=== PATIENT | female | born 1965 | race Caucasian/White ===

== ENCOUNTER → 2017-02-03 | Outpatient (CLI) | payer BC ==
[~2017-02-03] MED LIST: AMOX500C3 PO; PANT40TA PO
[2017-02-03 15:50] LABS: BASO % 0.3 %; BASO ABS # 0.02 K/uL (0-0.2); COMPLETE YES; EOS % 1.6 %; HEMATOCRIT 35.8 % (37-47); IG% 0.2 %; LYMPH % 32.9 %; LYMPH ABS # 1.88 K/uL (1.2-3.4); MEAN CELL VOLUME 89.9 fL (80-100); MEAN CORPUSCULAR HEMOGLOBIN 31.2 pg (25-34); MEAN CORPUSCULAR HGB CONC 34.6 g/dl (32-36); MEAN PLATELET VOLUME 9.9 fL (7.4-10.4); MONO % 9.4 %; NEUT % 55.6 %; PLATELET COUNT 288 K/uL (130-400); RED BLOOD COUNT 3.98 M/uL (4.2-5.4); WHITE BLOOD COUNT 5.72 K/uL (4.8-10.8)
[2017-02-03 16:40] LABS: ALT/SGPT 21 U/L (12-78); BLOOD UREA NITROGEN 10 mg/dl (7-18); BUN/CREATININE RATIO 15.5 (10-20); CALCIUM 9.3 mg/dl (8.5-10.1); CARBON DIOXIDE 25 mmol/L (21-32); CHLORIDE 106 mmol/L (98-107); CHOLESTEROL 155 mg/dl (0-200); CREATININE 0.67 mg/dl (0.60-1.20); GLUCOSE 76 mg/dl (70-99); POTASSIUM 3.9 mmol/L (3.5-5.1); SODIUM 139 mmol/L (136-145)
[2017-02-03 16:43] LABS: ALB/GLOB RATIO 1.2 (0.9-2); ALKALINE PHOSPHATASE 49 U/L (45-117); AST/SGOT 16 U/L (15-37); CHOLESTEROL/HDL RATIO 2.9; HDL CHOLESTEROL 54 mg/dl; LDL CHOLESTEROL CALCULATED 86 mg/dl; TRIGLYCERIDES 75 mg/dl (0-150); VERY LOW DENSITY LIPOPROT CALC 15 mg/dl
== END | disposition home or self-care (01) ==
LOC: C.LAB1850 14:16
PROVIDERS: ATTEND Nurse Practitioner Adult Health
DX: Z00.00 Encounter for general adult medical examination without abnormal findings (principal); E55.9 Vitamin D deficiency, unspecified; M85.80 Other specified disorders of bone density and structure, unspecified site

== ENCOUNTER → 2017-11-05 | Outpatient (CLI) | payer BC ==
--- NOTE | 2017-11-09 13:37 | MAMMOGRAPHY REPORT ---
BILATERAL DIGITAL SCREENING MAMMOGRAM TOMOSYNTHESIS WITH CAD: 11/05/2017 CLINICAL HISTORY: Routine screening. Patient has no complaints. TECHNIQUE: Breast tomosynthesis in addition to standard 2D mammography was performed. Current study was also evaluated with a Computer Aided Detection (CAD) system. COMPARISON: Comparison is made to exams dated: 01/24/2016 mammogram, 10/09/2013 mammogram, 10/04/2012 mammogram, 08/28/2011 mammogram, 10/16/2006 mammogram, and 04/12/2002 mammogram - [facility]. BREAST COMPOSITION: The tissue of both breasts is heterogeneously dense, which may obscure small mas ses. FINDINGS: No suspicious masses, calcifications, or areas of architectural distortion are noted in ei ther breast. There has been no significant interval change compared to prior exams. Scattered bilater al benign-appearing calcifications are not significantly changed. IMPRESSION: ACR BI-RADS CATEGORY 2: BENIGN There is no mammographic evidence of malignancy. A 1 year screening mammogram is recommended. The pa tient will receive written notification of the results. Approximately 10% of breast cancers are not detected with mammography. A negative mammographic report should not delay biopsy if a clinically suggestive mass is present. Ann-Marie Salcido M.D. /:11/05/2017 15:17:01 S[employer] Drier Feeder: Tonja Rosenberg, [facility] letter sent: Normal 1/2 BI-RADS Code: ACR BI-RADS Category 2: Benign
== END | disposition home or self-care (01) ==
LOC: C.MAMM 13:50
PROVIDERS: ATTEND Obstetrics & Gynecology
DX: Z12.31 Encounter for screening mammogram for malignant neoplasm of breast (principal)

== ENCOUNTER 2021-02-10 10:53 | Inpatient (IN) ==
[2021-02-10] MEDS ORDERED: cefTRIAXone SODIUM 2,000 MG/70 ML BAG IV STA (11:24)
[2021-02-10] MEDS ORDERED: SODIUM CHLORIDE 0.9% 1000ML 1,000 ML IV STA (11:24)
[2021-02-10] MEDS ORDERED: KETOROLAC TROMETHAMINE 15 MG/ML VIAL IV ONE (11:27)
--- NOTE | 2021-02-10 11:48 | Emergency Department Note ---
Impression & Plan Abscess or cellulitis of scalp, Facial swelling ED Provider Note Provider: Joey Lee MD DATE OF SERVICE: 02/10/2021 CHIEF COMPLAINT: Scalp and facial pain HISTORY OF PRESENT ILLNESS: Patient is a 55-year-old female with a past medical history including gastroparesis, GERD, and TMJ presenting here today complaining of approximately 5 days of worsening forehead and facial swelling. Was seen here 2 days ago on Wednesday and had a drainage of a forehead abscess and there were concerns for cellulitis. She is been taking Keflex and Bactrim since that time. Reports worsening of the swelling and pain to the forehead is now is significant swelling around the eyes this morning. Patient states use some cool compresses to help with the swelling but her eyes were almost swollen shut this morning. States he feeling still a bit dizzy over the last several days as well. States has been using ibuprofen for pain when this wears off the pain is fairly severe in the front of her forehead and face. She states that she is noted a few enlarged lymph nodes in her neck as well. Denies any other rash or trauma. Denies other numbness or weakness. Patient states that her left eye vision seems just a little bit off. Denies acute double vision. Denies a history of diabetes or resistant infections. States she did not take ibuprofen or her antibiotics this morning. She called her doctor's office regarding this and was referred here. Patient does have a distal history of shingles but states not having any similar rash to this. Patient states she is not had significant drainage from the small abscess drained 2 days ago. REVIEW OF SYSTEMS: A total of 10 review of systems was obtained and negative except as stated above in the HPI. PAST MEDICAL HISTORY: As noted above MEDICATIONS: Reviewed home medications including currently Keflex and Bactrim SOCIAL HISTORY: Lives at home with , non-smoker PHYSICAL EXAM: GENERAL: alert and oriented in no acute distress on stretcher Head: Patient with some forehead erythema and significant swelling and puffiness under the bilateral eyes. No vesicular rashes noted. In the scalp there is an approximately 8 mm area of some prominence which she describes as the prior incision and drainage site on the forehead. EYES: No injection, discharge or icterus. PERRL, EOMI. as above noted puffiness and swelling with some mild erythema below the bilateral eyes. NECK: Trachea midline. Supple with a few shotty lymph nodes appreciated in the anterior chains ENT: Mucous membranes pink and moist. Pharynx without erythema or exudate. LUNGS: Airway patent. No retractions. Breath sounds clear with good air entry bilaterally. HEART: Regular rate and rhythm. No chest wall tenderness SKIN: Acyanotic, warm, dry, without rashes EXTREMITIES: Without swelling, tenderness or deformity NEUROLOGICAL: No focal deficits. No aphasia. No facial droop or slurred speech. Ambulatory. EK bpm sinus bradycardia. No PVC or PAC. No acute ST segment elevation or depression appreciated with a QTC of 411. CONTINUOUS CARDIAC MONITORING: was ordered and showed a heart rate of 50s-70s bpm in normal sinus rhythm to sinus bradycardia Patient's laboratory studies and imaging reviewed. Differential includes Infection, dehydration, metabolic abnormality, hypo/hyperglycemia, electrolyte disturbance, anemia, hypoxia, cardiac sources, intracerebral event, toxicologic, neurologic, as well as other pathologies. IMPRESSION/MEDICAL DECISION MAKING: Patient presents complaining a little bit dizziness worsening facial pain and swelling currently on antibiotics. States she been taking the Keflex and Bactrim but now worsening swelling and no significant puffiness under the eyes. No extraocular movement limitations noted. No crepitus noted. Patient does not appear meningitic. Blood work returns without significant leukocytosis. No e vidence of severe electrolyte abnormality or signs of troponin elevation and EKG was completed given her dizziness complaint. Covid test was sent as well as blood cultures and lactate. Expanded coverage with vancomycin and ceftriaxone here given the worsening of her swelling and pain and erythema. Did receive a dose of Toradol here to help with pain. There is no vesicular component and crosses the midline and doubt this represents an acute zoster outbreak. No other associated rash or swelling elsewhere and lower suspicion that this is acutely allergic reaction. Lactate not elevated. CT of the maxillofacial without evidence of significant abscess. CT head questions a small possible mccallum bcutaneous abscess with adjacent infiltration. I do question how much of the swelling is inflammatory versus infectious. She does not appear septic. Discussed with the patient performing an additional incision and drainage on the resultant wound and area today but patient initially declined. Patient states she was in quite a lot of pain with the incision and drainage attempt here the other day and declined even with local lidocaine infiltration attempt at this time. Given appears to be some failure in the outpatient setting with oral antibiotics feel that further observation of her here is reasonable on IV antibiotics. DIAGNOSIS: Forehead abscess and cellulitis DISPOSITION: Hospitalist will evaluate Patient was agreeable with this plan. Past Med/Surg History Medical History Anemia Barretts esophagus Gastroparesis GERD (gastroesophageal reflux disease) Liver hemangioma Menorrhagia (03/16/14) Seasonal allergies Temporomandibular joint disorder Tinnitus, bilateral Vegetarian Surgical History History of bilateral tubal ligation History of colonoscopy History of esophagogastroduodenoscopy (EGD) History of hysterectomy History of nasal septoplasty History of tonsillectomy History of tooth extraction Family History Father Family history of diabetes mellitus Denies family history of Ovarian cancer Prostate cancer Myocardial infarction Breast cancer Colorectal cancer Social History Smoking Status: Never smoker Second Hand Exposure: Yes (OCCASIONALLY); Hx Alcohol Use: Yes Alcohol type: wine Hx Substance Use: No Preferred Language: American Communication Ability: Effective Visual Impairment: No Limitations Hearing Ability: Normal Supervisor Car Installations Required: No Beliefs That Will Affect Care: None marital status: Current Living Situation: Spouse current occupational status: employed Feels Safe at Home: Yes Childhood Exposure to Second-Hand Smoke: Yes Dental Care, Regularly: Yes Physical Activity Frequency: 3-4 Times per Week Seatbelt Use: always Sunscreen Use: Yes Assistive Devices: Glasses Allergies Allergies Allergy/AdvReac Type Severity Reaction Status Date / Time No Known Allergies Allergy Verified 02/10/21 12:41 Home Meds Home Medications Medication Instructions Recorded Confirmed Calcium 600 + D(3) 1 cap PO BID 04/11/19 02/10/21 loratadine [Claritin] 10 mg PO QAM PRN 04/11/19 02/10/21 pantoprazole 40 mg PO QAM 02/08/21 02/10/21 Previous Rx's Medication Instructions Recorded fluticasone propionate 50 1 spray INTRANASAL DAILY PRN #9.9 12/26/19 mcg/actuation nasal ml spray,suspension cephalexin 500 mg PO QID 7 Days #28 tab 02/08/21 sulfamethoxazole-trimethoprim 1 tab PO BID 7 Days #14 tab 02/08/21 [Bactrim DS] trazodone 50 mg tablet 25 - 50 mg PO HS #30 tab 02/10/21 Results & Data (ED) Vital Signs Vital Signs - 24 hr 02/10/21 10:56 02/10/21 11:46 02/10/21 13:08 Temperature 37.2 C Temperature Source Temporal Artery Scan Pulse Rate 70 59 L Pulse Rate [Left] 58 L Respiratory Rate 16 20 18 Respiratory Effort / Characteristics Non-Labored Non-Labored Spontaneous Respiratory Depth Normal Normal Respiratory Pattern Regular Blood Pressure 141/76 H Blood Pressure [Right Arm] 128/72 Blood Pressure Mean 97 Blood Pressure Mean [Right Arm] 90 Blood Pressure Position Sitting Blood Pressure Position [Right Arm] Lying Pulse Oximetry 99 98 98 Oxygen Delivery Method Room Air Room Air Room Air Sepsis Recent Fever Within 48 Hours No Sepsis New/Unexplained Change in Mental Status No Sepsis Action Taken by Nursing No Action Required Laboratory Data Result diagrams: 02/10/21 11:59 02/10/21 11:59 Lab Results 02/10/21 02/10/21 02/10/21 Range/Units 11:59 11:59 11:59 WBC 7.83 (4.8-10.8) K/uL RBC 4.19 L (4.2-5.4) M/uL Hgb 12.8 (12.0-16.0) g/dL Hct 38.0 (37-47) % MCV 90.7 (80-100) fL MCH 30.5 (25-34) pg MCHC 33.7 (32-36) g/dL RDW Std Deviation 41.9 (36.4-46.3) fL RDW Coeff of Telma 12.7 (11.5-14.5) % Plt Count 281 (130-400) K/uL MPV 9.9 (7.4-10.4) fL Immature Gran % (Auto) 0.3 % Neut % (Auto) 68.8 % Lymph % (Auto) 20.2 % [place] % (Auto) 10.0 % Eos % (Auto) 0.6 % Baso % (Auto) 0.1 % Neut # (Auto) 5.39 (1.4-6.5) K/uL Lymph # (Auto) 1.58 (1.2-3.4) K/uL [place] # (Auto) 0.78 H (0.11-0.59) K/uL Eos # (Auto) 0.05 (0-0.5) K/uL Baso # (Auto) 0.01 (0-0.2) K/uL Immature Gran # (Auto) 0.02 (0.00-0.02) K/uL PT 9.8 (9.0-12.0) Seconds INR 1.0 (0.9-1.1) Sodium 138 (136-145) mmol/L Potassium 4.5 (3.5-5.1) mmol/L Chloride 108 H (98-107) mmol/L Carbon Dioxide 26 (21-32) mmol/L Anion Gap 4.0 (3-11) BUN 14 (7-18) mg/dl Creatinine 0.85 (0.6-1.2) mg/dl Est Cr Clr Drug Dosing 67.9 ml/min Est GFR ( Amer) 88.2 Est GFR (Non-Af Amer) 76.1 BUN/Creatinine Ratio 16.9 (10-20) Glucose 90 (70-99) mg/dl Lactate (0.4-2.0) mmol/L Calcium 9.2 (8.5-10.1) mg/dl Total Bilirubin 0.5 (0.2-1) mg/dl AST 14 L (15-37) U/L ALT 26 (12-78) U/L Alkaline Phosphatase 81 (45-117) U/L Troponin I < 0.015 (0-0.045) ng/ml Total Protein 7.4 (6.4-8.2) gm/dl Albumin 3.8 (3.4-5.0) gm/dl Globulin 3.6 (2.5-4.0) gm/dl Albumin/Globulin Ratio 1.1 (0.9-2) Urine Color Urine Appearance (Clear) Urine pH (4.5-7.5) Ur Specific Clio (1.000-1.030) Urine Protein (Negative) Urine Glucose (UA) (Negative) Urine Ketones (Negative) Urine Blood (Negative) Urine Nitrite (Negative) Urine Bilirubin (Negative) Urine Urobilinogen (Negative) Ur Leukocyte Esterase (Negative) COVID-19 Eval Order SARS-CoV-2 (PCR) (Negative) Influenza Type A (PCR) (Neg) Influenza Type B (PCR) (Neg) RSV (RT-PCR) (Neg) 02/10/21 02/10/21 02/10/21 Range/Units 12:07 12:07 12:36 WBC (4.8-10.8) K/uL RBC (4.2-5.4) M/uL Hgb (12.0-16.0) g/dL Hct (37-47) % MCV (80-100) fL MCH (25-34) pg MCHC (32-36) g/dL RDW Std Deviation (36.4-46.3) fL RDW Coeff of Telma (11.5-14.5) % Plt Count (130-400) K/uL MPV (7.4-10.4) fL Immature Gran % (Auto) % Neut % (Auto) % Lymph % (Auto) % [place] % (Auto) % Eos % (Auto) % Baso % (Auto) % Neut # (Auto) (1.4-6.5) K/uL Lymph # (Auto) (1.2-3.4) K/uL [place] # (Auto) (0.11-0.59) K/uL Eos # (Auto) (0-0.5) K/uL Baso # (Auto) (0-0.2) K/uL Immature Gran # (Auto) (0.00-0.02) K/uL PT (9.0-12.0) Seconds INR (0.9-1.1) Sodium (136-145) mmol/L Potassium (3.5-5.1) mmol/L Chloride (98-107) mmol/L Carbon Dioxide (21-32) mmol/L Anion Gap (3-11) BUN (7-18) mg/dl Creatinine (0.6-1.2) mg/dl Est Cr Clr Drug Dosing ml/min Est GFR ( Amer) Est GFR (Non-Af Amer) BUN/Creatinine Ratio (10-20) Glucose (70-99) mg/dl Lactate 0.9 (0.4-2.0) mmol/L Calcium (8.5-10.1) mg/dl Total Bilirubin (0.2-1) mg/dl AST (15-37) U/L ALT (12-78) U/L Alkaline Phosphatase (45-117) U/L Troponin I (0-0.045) ng/ml Total Protein (6.4-8.2) gm/dl Albumin (3.4-5.0) gm/dl Globulin (2.5-4.0) gm/dl Albumin/Globulin Ratio (0.9-2) Urine Color Urine Appearance (Clear) Urine pH (4.5-7.5) Ur Specific Clio (1.000-1.030) Urine Protein (Negative) Urine Glucose (UA) (Negative) Urine Ketones (Negative) Urine Blood (Negative) Urine Nitrite (Negative) Urine Bilirubin (Negative) Urine Urobilinogen (Negative) Ur Leukocyte Esterase (Negative) COVID-19 Eval Order [facility] at [facility] SARS-CoV-2 (PCR) NEGATIVE (Negative) Influenza Type A (PCR) Negative (Neg) Influenza Type B (PCR) Negative (Neg) RSV (RT-PCR) Negative (Neg) 02/10/21 Range/Units 13:15 WBC (4.8-10.8) K/uL RBC (4.2-5.4) M/uL Hgb (12.0-16.0) g/dL Hct (37-47) % MCV (80-100) fL MCH (25-34) pg MCHC (32-36) g/dL RDW Std Deviation (36.4-46.3) fL RDW Coeff of Telma (11.5-14.5) % Plt Count (130-400) K/uL MPV (7.4-10.4) fL Immature Gran % (Auto) % Neut % (Auto) % Lymph % (Auto) % [place] % (Auto) % Eos % (Auto) % Baso % (Auto) % Neut # (Auto) (1.4-6.5) K/uL Lymph # (Auto) (1.2-3.4) K/uL [place] # (Auto) (0.11-0.59) K/uL Eos # (Auto) (0-0.5) K/uL Baso # (Auto) (0-0.2) K/uL Immature Gran # (Auto) (0.00-0.02) K/uL PT (9.0-12.0) Seconds INR (0.9-1.1) Sodium (136-145) mmol/L Potassium (3.5-5.1) mmol/L Chloride (98-107) mmol/L Carbon Dioxide (21-32) mmol/L Anion Gap (3-11) BUN (7-18) mg/dl Creatinine (0.6-1.2) mg/dl Est Cr Clr Drug Dosing ml/min Est GFR ( Amer) Est GFR (Non-Af Amer) BUN/Creatinine Ratio (10-20) Glucose (70-99) mg/dl Lactate (0.4-2.0) mmol/L Calcium (8.5-10.1) mg/dl Total Bilirubin (0.2-1) mg/dl AST (15-37) U/L ALT (12-78) U/L Alkaline Phosphatase (45-117) U/L Troponin I (0-0.045) ng/ml Total Protein (6.4-8.2) gm/dl Albumin (3.4-5.0) gm/dl Globulin (2.5-4.0) gm/dl Albumin/Globulin Ratio (0.9-2) Urine Color Yellow Urine Appearance Clear (Clear) Urine pH 5.5 (4.5-7.5) Ur Specific [place] 1.034 H (1.000-1.030) Urine Protein Negative (Negative) Urine Glucose (UA) Negative (Negative) Urine Ketones Negative (Negative) Urine Blood Negative (Negative) Urine Nitrite Negative (Negative) Urine Bilirubin Negative (Negative) Urine Urobilinogen Negative (Negative) Ur Leukocyte Esterase Negative (Negative) COVID-19 Eval Order SARS-CoV-2 (PCR) (Negative) Influenza Type A (PCR) (Neg) Influenza Type B (PCR) (Neg) RSV (RT-PCR) (Neg) Administered Medications Sodium Chloride (Nss 1000ml) 1,000 mls @ 125 mls/hr IV .Q8H STA Stop: 02/10/21 19:23 Last Admin: 02/10/21 12:07 Dose: 125 mls/hr Documented by: [id number] Vancomycin HCl 1,250 mg/ (Sodium Chloride) 525 mls @ 200 mls/hr IV NOW ONE Stop: 02/10/21 15:03 Last Admin: 02/10/21 13:08 Dose: 200 mls/hr Documented by: [id number] Discontinued Medications Ceftriaxone Sodium (Rocephin) 2,000 mg in 70 mls @ 140 mls/hr IV NOW STA Stop: 02/10/21 11:53 Last Infusion: 02/10/21 13:49 Dose: 0 mls/hr Documented by: [id number] Admin: 02/10/21 13:08 Dose: 140 mls/hr Documented by: [id number] Ioversol (Ioversol 100ml) 95 ml IV ONCE ONE Stop: 02/10/21 12:56 Last Admin: 02/10/21 12:56 Dose: 95 ml Documented by: [id number] Ketorolac Tromethamine (Ketorolac Tromethamine 15 Mg/Ml Vial) 10 mg IV NOW ONE Stop: 02/10/21 11:28 Last Admin: 02/10/21 12:06 Dose: 10 mg Documented by: [id number] Imaging Data Radiologist's Impression: Face CT 02/10/21 11:24 CT facial bones w con CT DOSE: 839.14 mGy.cm CLINICAL HISTORY: Facial swelling. Possible abscess. TECHNIQUE: The patient was scanned in a dynamic helical fashion during intravenous administration of 95 cc of Optiray 320 A dose lowering technique was utilized adhering to the principles of ALARA. COMPARISON STUDY: None. FINDINGS: No facial fractures are visualized. No submandibular or parotid gland masses are visualized. Intraparotid lymph nodes are visualized within the parotid glands bilaterally. There are no fluid collections suspicious for abscess. There is no hydrocephalus. No orbital lesions are visualized. There is nasal septal deviation to the left. IMPRESSION: 1. Unremarkable facial CT scan. No evidence of abscess. ACT 112: Negative or not required by law. Electronically signed by: Wesly Patton M.D. 02/10/2021 1:[address] 02/10/21 11:25 CT OF THE HEAD WITHOUT CONTRAST CLINICAL HISTORY: forehead swelling, ?abscess/cellulitis COMPARISON STUDY: No previous studies for comparison. TECHNIQUE: Helical axial images of the head were obtained without IV contrast. Automated exposure control was utilized for the study. A dose lowering technique was utilized adhering to the principles of ALARA. FINDINGS: No acute intracranial hemorrhage, midline shift or mass effect is present. The ventricular system is unremarkable. The basal cisterns are patent. No extra-axial collections are present. There are no findings to suggest acute dural sinus thrombosis or acute territorial infarct. No significant calvarial abnormalities are present. Visualized portions of the sinuses and mastoid air cells are clear. Note is made of a midline forehead subcutaneous abnormality that measures approximately 1 cm. There is mild adjacent infiltration. This favo rs an infectious process with small abscess. Underlying calvarium is intact. IMPRESSION: 1. No acute intracranial findings. 2. Midline forehead subcutaneous abnormality that measures approximately 1 cm with mild adjacent infiltration. This favors an infectious process with small abscess. Clinical follow up to ensure resolution is recommended. Calvarium intact. ACT 112: Negative or not required by law. Electronically signed by: Tevin Watts M.D. 02/10/2021 1:08 PM Discharge Plan Visit Data Chief Complaint: Facial Injury/Pain Stated Complaint: SWELLING ON FACE, DR REF OVER ED Provider: Joey Lee Discharge Problem: Abscess or cellulitis of scalp, Facial swelling Patient Disposition: Being Evaluated by Hospitalist Forms Stand Alone Forms: [facility] Prescriptions Prescriptions: No Action fluticasone propionate [Flonase Allergy Relief] 50 mcg/actuation spray,suspens ion 1 spray INTRANASAL DAILY PRN (Reason: Nasal Congestion) Qty: 9.9 RF: 3 trazodone 50 mg tablet 25 - 50 mg PO HS Qty: 30 RF: 1 loratadine [Claritin] 10 mg Tablet 10 mg PO QAM PRN (Reason: Allergy Symptoms) RF: 0 Calcium 600 + D(3) 600 mg calcium- 200 unit Capsule 1 cap PO BID RF: 0 pantoprazole 40 mg tablet,delayed release (DR/EC) 40 mg PO QAM RF: 0 sulfamethoxazole-trimethoprim [Bactrim DS] 800-160 mg tablet 1 tab PO BID 7 Days Qty: 14 RF: 0 cephalexin 500 mg tablet 500 mg PO QID 7 Days Qty: 28 RF: 0 Referrals Referrals: Good Villareal MD [Primary Care Provider] -
[2021-02-10 12:17] LABS: Basophils # (auto) 0.01 K/uL (0-0.2); Basophils % (auto) 0.1 %; Eosinophils # (auto) 0.05 K/uL (0-0.5); Eosinophils % (auto) 0.6 %; Hemoglobin 12.8 g/dL (12.0-16.0); Immature Granulocytes # (auto) 0.02 K/uL (0.00-0.02); Immature Granulocytes % (auto) 0.3 %; Lymphocytes # (auto) 1.58 K/uL (1.2-3.4); Lymphocytes % (auto) 20.2 %; Mean Corpuscular Hemoglobin 30.5 pg (25-34); Mean Corpuscular Hgb Conc 33.7 g/dL (32-36); Mean Corpuscular Volume 90.7 fL (80-100); Mean Platelet Volume 9.9 fL (7.4-10.4); Monocytes # (auto) 0.78 K/uL (0.11-0.59); Neutrophils # (auto) 5.39 K/uL (1.4-6.5); Neutrophils % (auto) 68.8 %; Platelet Count 281 K/uL (130-400); RDW Coefficient of Variation 12.7 % (11.5-14.5); RDW Standard Deviation 41.9 fL (36.4-46.3); Red Blood Count 4.19 M/uL (4.2-5.4); White Blood Count 7.83 K/uL (4.8-10.8)
[2021-02-10] MEDS ORDERED: VANCOMYCIN CONSULT ACTIVE PRN ×2 (12:26→16:14)
[2021-02-10] MEDS ORDERED: VANCOMYCIN HCL 1,250 MG in SODIUM CHLORIDE 0.9% 500 ML IV ONE (12:26)
[2021-02-10 12:29] LABS: Prothrombin Time 9.8 Seconds (9.0-12.0)
[2021-02-10 12:35] LABS: Alanine Aminotransferase 26 U/L (12-78); Albumin Level 3.8 gm/dl (3.4-5.0); Aspartate Aminotransferase 14 U/L (15-37); BUN Creatinine Ratio 16.9 (10-20); Blood Urea Nitrogen 14 mg/dl (7-18); Calcium 9.2 mg/dl (8.5-10.1); Carbon Dioxide 26 mmol/L (21-32); Chloride 108 mmol/L (98-107); Creatinine Clr Calc Pharmacy 67.9 ml/min; Est GFR (African American) 88.2; Est GFR (Non-African American) 76.1; Glucose 90 mg/dl (70-99); Potassium 4.5 mmol/L (3.5-5.1); Sodium 138 mmol/L (136-145)
[2021-02-10 12:40] LABS: Albumin Globulin Ratio 1.1 (0.9-2); Alkaline Phosphatase 81 U/L (45-117); Bilirubin,Total 0.5 mg/dl (0.2-1); Globulin 3.6 gm/dl (2.5-4.0); Total Protein 7.4 gm/dl (6.4-8.2); Troponin I < 0.015 ng/ml (0-0.045)
[2021-02-10] MEDS ORDERED: OPTIRAY 320 100ml IV ONE (12:55)
--- NOTE | 2021-02-10 13:09 | CT Scan Report ---
CT OF THE HEAD WITHOUT CONTRAST CLINICAL HISTORY: forehead swelling, ?abscess/cellulitis COMPARISON STUDY: No previous studies for comparison. TECHNIQUE: Helical axial images of the head were obtained without IV contrast. Automated exposure con trol was utilized for the study. A dose lowering technique was utilized adhering to the principles o f ALARA. FINDINGS: No acute intracranial hemorrhage, midline shift or mass effect is present. The ventricular system is unremarkable. The basal cisterns are patent. No extra-axial collections are present. There are no findings to suggest acute dural sinus thrombosis or acute territorial infarct. No significant calvarial abnormalities are present. Visualized portions of the sinuses and mastoid air cells are mini ar. Note is made of a midline forehead subcutaneous abnormality that measures approximately 1 cm. The re is mild adjacent infiltration. This favors an infectious process with small abscess. Underlying ca lvarium is intact. IMPRESSION: 1. No acute intracranial findings. 2. Midline forehead subcutaneous abnormality that measures approximately 1 cm with mild adjacent infi ltration. This favors an infectious process with small abscess. Clinical follow up to ensure resoluti on is recommended. Calvarium intact. ACT 112: Negative or not required by law. Electronically signed by: Tevin Watts M.D. 02/10/2021 1:08 PM
--- NOTE | 2021-02-10 13:12 | CT Scan Report ---
CT facial bones w con CT DOSE: 839.14 mGy.cm CLINICAL HISTORY: Facial swelling. Possible abscess. TECHNIQUE: The patient was scanned in a dynamic helical fashion during intravenous administration of 95 cc of Optiray 320 A dose lowering technique was utilized adhering to the principles of ALARA. COMPARISON STUDY: None. FINDINGS: No facial fractures are visualized. No submandibular or parotid gland masses are visualized. Intraparotid lymph nodes are visualized with in the parotid glands bilaterally. There are no fluid collections suspicious for abscess. There is no hydrocephalus. No orbital lesions are visualized. There is nasal septal deviation to the left. IMPRESSION: 1. Unremarkable facial CT scan. No evidence of abscess. ACT 112: Negative or not required by law. Electronically signed by: Wesly Patton M.D. 02/10/2021 1:10 PM
[2021-02-10 13:18] LABS: Influenza A virus by PCR Negative (Neg); Influenza B virus by PCR Negative (Neg); RSV by PCR Negative (Neg); SARS CoV2 RNA(COVID-19) InHosp NEGATIVE (Negative)
[2021-02-10 13:47] LABS: Appearance Urine Clear (Clear); Bilirubin Urine Negative (Negative); Blood Urine Negative (Negative); Color Urine Yellow; Glucose Urine UA Negative (Negative); Ketones Urine Negative (Negative); Leukocyte Esterase Urine Negative (Negative); Nitrite Urine Negative (Negative); Protein Urine Negative (Negative); Specific Gravity Urine 1.034 (1.000-1.030); Urobilinogen Urine Negative (Negative); pH Urine 5.5 (4.5-7.5)
--- NOTE | 2021-02-10 14:24 | Surgery Consultation ---
Date of Consultation February 10, 2021 Assessment & Plan (1) Cellulitis of head or scalp: Culture obtained from draining scalp lesion. There is no fluid collection present today for incision and drainage. Our recommendation is to use warm compress to affected area to promote drainage and continue antibiotics. Patient will be re-evaluated tomorrow. Supervising Physician Co-Signing Physician Notes I personally saw and examined this patient and agree with the assessment and plan. There is cellulitis of the forehead and periorbital area, small area of inflammation/abscess anterior scalp which is draining pus. Culture obtained. Discussed further attempt at I+D vs warm compresses and 24 hours of IV antibiotics first. I do not think there would be much benefit to I+D at the present time as it is draining on its own. She would prefer antibiotics for now. History of Present Illness History of Present Illness Susan is being seen today with Dr. Butt in consultation of a facial abscess and swelling. She reports noticing a small, tender lump in her hair last week. This continued to increase in size and pain, so she went to the ED on Wednesday. At that time, an attempt to I&D the lump was made, with minimal drainage noted. The patient was discharged home on PO Bactrim and Keflex. She reports that yesterday she noticed increased redness and facial swelling and returns today to the ED for evaluation. She does admit to pain of the forehead. She denies vision changes, fevers. CT performed as noted below: IMPRESSION: 1. No acute intracranial findings. 2. Midline forehead subcutaneous abnormality that measures approximately 1 cm with mild adjacent infiltration. This favors an infectious process with small abscess. Clinical follow up to ensure resolution is recommended. Calvarium intact. Allergies Allergy/AdvReac Type Severity Reaction Status Date / Time No Known Allergies Allergy Verified 02/10/21 12:41 Home Medications Medication Instructions Recorded Confirmed Type Calcium 600 + D(3) 1 cap PO BID 04/11/19 02/10/21 History loratadine [Claritin] 10 mg PO QAM PRN 04/11/19 02/10/21 History fluticasone propionate 50 1 spray INTRANASAL DAILY PRN #9.9 12/26/19 02/10/21 Rx mcg/actuation nasal ml spray,suspension cephalexin 500 mg PO QID 7 Days #28 tab 02/08/21 02/10/21 Rx pantoprazole 40 mg PO QAM 02/08/21 02/10/21 History sulfamethoxazole-trimethoprim 1 tab PO BID 7 Days #14 tab 02/08/21 02/10/21 Rx [Bactrim DS] trazodone 50 mg tablet 25 - 50 mg PO HS #30 tab 02/10/21 02/10/21 Rx Patient History Medical History Anemia Barretts esophagus Gastroparesis GERD (gastroesophageal reflux disease) Liver hemangioma Menorrhagia (03/16/14) Seasonal allergies Temporomandibular joint disorder Tinnitus, bilateral Vegetarian Surgical History History of bilateral tubal ligation History of colonoscopy History of esophagogastroduodenoscopy (EGD) History of hysterectomy History of nasal septoplasty History of tonsillectomy History of tooth extraction Family History Father Family history of diabetes mellitus Denies family history of Ovarian cancer Prostate cancer Myocardial infarction Breast cancer Colorectal cancer Social History Smoking Status: Never smoker Second Hand Exposure: Yes (OCCASIONALLY); Hx Alcohol Use: Yes Alcohol type: wine Hx Substance Use: No Preferred Language: Albanian Communication Ability: Effective Visual Impairment: No Limitations Hearing Ability: Normal Administrative Assistant Data Entry Required: No Beliefs That Will Affect Care: None marital status: Current Living Situation: Spouse current occupational status: employed Feels Safe at Home: Yes Childhood Exposure to Second-Hand Smoke: Yes Dental Care, Regularly: Yes Physical Activity Frequency: 3-4 Times per Week Seatbelt Use: always Sunscreen Use: Yes Assistive Devices: Glasses Review of Systems Review of Systems: All systems reviewed & are unremarkable except as noted in HPI & below Physical Exam Physical Exam: 55 year old female with draining subcutaneous lesion frontal scalp, erythema, warmth and edema of the forehead and bilateral lower eyelid/malar area. no drainable abscess in noted on clinical exam Results & Data ([facility]) Vital Signs (Past 12 Hours) Vital Signs Temp Pulse Pulse Resp BP BP Pulse Ox 02/10/21 13:08 58 L 18 128/72 98 02/10/21 11:46 59 L 20 98 02/10/21 10:56 37.2 C 70 16 141/76 H 99 PG Care Time/CCT Total # of Minutes Spent Total Time Spent with Patient: Total time spent is greater than 50% in coordination of care (as documented) at patient's floor/unit and/or counseling patient: Coding Level of Care Code 22928 Inpt Consult Level 2 Diagnoses Cellulitis of head or scalp L03.811
--- NOTE | 2021-02-10 14:28 | History & Physical Report ---
Date of Service February 10, 2021 Assessment & Plan (1) Abscess of scalp: Plastic surgery consult for evaluation of I&D - IV ABX- Vancomycin and Rocephin - wean down and de-escalate as able - Warm compresses to the scalp - Likely follow after 24-48 hours- appreciate plastic surgery's recommendations (2) Cellulitis of head or scalp: As above, continue to monitor - consistent with streptococci infection- await cultures - Not septic appearing - Cool compresses for symptoms - CRP pending, WBC normal, NLR 2.5:1 (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- patient states that symptoms are controlled (4) Vitamin D deficiency disease: No acute needs, continue home medication History of Present Illness Chief Complaint: Scalp pain Primary Care Provider: Good Villareal MD 55 YOF with past medical history of Vitamin D deficiency, audi esophagitis, IBS; who originally presented to the ED on for complaint of a painful scalp lesion with erythema that extended to the forehead. She had an attempted needle aspiration performed and was discharged on oral Keflex and Bactrim. She came in today for worsening of the erythema to her forehead and as well as down below her eyes. She also noted that her lymph nodes along her neck were sore. In the Emergency room she had blood cultures performed, urine culture, a head and face CT scan, and was started on Ceftriaxone and Vancomycin. The Hospitalist service was then asked to see the patient for admission. The patient does not recall any nidus of injury to her scalp. She "may have bumped her head on the recliner while getting the remote from under couch", but thought that was a couple of months ago. She did go to the hair dressers on and does not recall any injury or soreness following that appointment. She also noted that her grandchild threw up in her hair a couple of days ago, while she was holding her over her head. She has a ~1.5 x.5 cm abscess on her scalp about 1.5 inches back from her hairline, it is scabbed over with green yellow purulent drainage, the surrounding tissue was mildly tender, not erythematous, with erythema down her central forehead that stopped right above her eyebrows. Erythema to below her bilateral eyes and upper eyelids, does not track any further laterally and posterior. Patient had one day of her antibiotics at home and Tylenol for pain. Denies fevers, headache, vision or breathing changes. Allergies Allergy/AdvReac Type Severity Reaction Status Date / Time No Known Allergies Allergy Verified 02/10/21 12:41 Home Medications Medication Instructions Recorded Confirmed Type Calcium 600 + D(3) 1 cap PO BID 04/11/19 02/10/21 History loratadine [Claritin] 10 mg PO QAM PRN 04/11/19 02/10/21 History fluticasone propionate 50 1 spray INTRANASAL DAILY PRN #9.9 12/26/19 02/10/21 Rx mcg/actuation nasal ml spray,suspension cephalexin 500 mg PO QID 7 Days #28 tab 02/08/21 02/10/21 Rx pantoprazole 40 mg PO QAM 02/08/21 02/10/21 History sulfamethoxazole-trimethoprim 1 tab PO BID 7 Days #14 tab 02/08/21 02/10/21 Rx [Bactrim DS] trazodone 50 mg tablet 25 - 50 mg PO HS #30 tab 02/10/21 02/10/21 Rx Past Med/Surg History Medical History Anemia HX OF Barretts esophagus Gastroparesis GERD (gastroesophageal reflux disease) "SILENT" Liver hemangioma BEING MONITORED (JEAN) Menorrhagia (03/16/14) Seasonal allergies Temporomandibular joint disorder Tinnitus, bilateral Vegetarian Surgical History History of bilateral tubal ligation History of colonoscopy History of esophagogastroduodenoscopy (EGD) History of hysterectomy History of nasal septoplasty History of tonsillectomy History of tooth extraction Family History Father Family history of diabetes mellitus Denies family history of Ovarian cancer Prostate cancer Myocardial infarction Breast cancer Colorectal cancer Social History Smoking Status: Never smoker Second Hand Exposure: Yes (OCCASIONALLY); Hx Alcohol Use: Yes Alcohol type: wine Hx Substance Use: No Preferred Language: [place] Islander Communication Ability: Effective Visual Impairment: No Limitations Hearing Ability: Normal Stamp Presser Required: No Beliefs That Will Affect Care: None marital status: Current Living Situation: Spouse current occupational status: employed Other Information That Helps Us Care for You: No Feels Safe at Home: Yes Safety Concerns: Feels Safe At This Time Childhood Exposure to Second-Hand Smoke: Yes Dental Care, Regularly: Yes Physical Activity Frequency: 3-4 Times per Week Seatbelt Use: always Sunscreen Use: Yes Assistive Devices: Glasses Review of Systems Review of Systems: REVIEW OF SYSTEMS: Constitutional: No fever, sweats or chills Eyes: No diplopia, no worsening or blurred vision ENT: normal hearing, no trouble swallowing Respiratory: No cough, sputum, dyspnea at rest or on exertion Cardiovascular: No chest pain, tightness or palpitations Abdomen: No pain, nausea, vomiting, diarrhea or constipation Musculoskeletal: No joint pain, calf pain, swelling Neurologic: No weakness, numbness/tingling, or balance problems Psychiatric: No anxiety or depression Skin: No rash or itch Physical Exam Physical Exam: PHYSICAL EXAM: General: awake, alert, no apparent distress Head: Normocephalic, abscess as per HPI, purulent drainage ENT: PERRLA, EOMI, erythema and as per HPI, no pharyngeal exudate, mucous membranes moist, anterior cervical lymph nodes tender, submandibular and auricular lymph nodes tender and mildly swollen Neuro: AAO x 3, speech clear and appropriate, strength intact bilaterally 5/5, sensation intact and equal all extremities and dermatome, no pronator drift Chest: equal rise and fall of the chest, no accessory muscle use, no heaves or thrills, Clear to auscultation, on room air, Cardiac: Regular rate and rhythm, telemetry reviewed, skin warm dry, cap refill <3 seconds, peripheral pulses +2 no JVD, no murmur, no JVD, no edema GI: NABS x 4 quadrants, soft, nontender to palpation, no rebound, guarding or tenderness : Spontaneously voiding, no pain, no CVA tenderness, Extremities: Normal inspection, no peripheral edema or erythema, calfs nontender to palpation Psych: Normal mood and affect Skin: no rash or erythema Results & Data Results & Data ([facility]) Vital Signs (Past 12 Hours) Vital Signs Temp Pulse Pulse Resp BP BP Pulse Ox 02/10/21 13:08 58 L 18 128/72 98 02/10/21 11:46 59 L 20 98 02/10/21 10:56 37.2 C 70 16 141/76 H 99 Laboratory Results Abnormal lab results 02/10/21 02/10/21 02/10/21 Range/Units 11:59 11:59 13:15 RBC 4.19 L (4.2-5.4) M/uL [place] # (Auto) 0.78 H (0.11-0.59) K/uL Chloride 108 H (98-107) mmol/L AST 14 L (15-37) U/L Ur Specific [place] 1.034 H (1.000-1.030) Diagnostic Findings CT OF THE HEAD WITHOUT CONTRAST CLINICAL HISTORY: forehead swelling, ?abscess/cellulitis COMPARISON STUDY: No previous studies for comparison. TECHNIQUE: Helical axial images of the head were obtained without IV contrast. Automated exposure control was utilized for the study. A dose lowering technique was utilized adhering to the principles of ALARA. FINDINGS: No acute intracranial hemorrhage, midline shift or mass effect is present. The ventricular system is unremarkable. The basal cisterns are patent. No extra-axial collections are present. There are no findings to suggest acute dural sinus thrombosis or acute territorial infarct. No significant calvarial abnormalities are present. Visualized portions of the sinuses and mastoid air cells are clear. Note is made of a midline forehead subcutaneous abnormality that measures approximately 1 cm. There is mild adjacent infiltration. This favors an infectious process with small abscess. Underlying calvarium is intact. IMPRESSION: 1. No acute intracranial findings. 2. Midline forehead subcutaneous abnormality that measures approximately 1 cm with mild adjacent infiltration. This favors an infectious process with small abscess. Clinical follow up to ensure resolution is recommended. Calvarium intact. CT facial bones w con CT DOSE: 839.14 mGy.cm CLINICAL HISTORY: Facial swelling. Possible abscess. TECHNIQUE: The patient was scanned in a dynamic helical fashion during intravenous administration of 95 cc of Optiray 320 A dose lowering technique was utilized adhering to the principles of ALARA. COMPARISON STUDY: None. FINDINGS: No facial fractures are visualized. No submandibular or parotid gland masses are visualized. Intraparotid lymph nodes are visualized within the parotid glands bilaterally. There are no fluid collections suspicious for abscess. There is no hydrocephalus. No orbital lesions are visualized. There is nasal septal deviation to the left. IMPRESSION: 1. Unremarkable facial CT scan. No evidence of abscess. Medications Administered Sodium Chloride (Nss 1000ml) 1,000 mls @ 125 mls/hr IV .Q8H STA Stop: 02/10/21 19:23 Last Admin: 02/10/21 12:07 Dose: 125 mls/hr Documented by: [id number] Vancomycin HCl 1,250 mg/ (Sodium Chloride) 525 mls @ 200 mls/hr IV NOW ONE Stop: 02/10/21 15:03 Last Admin: 02/10/21 13:08 Dose: 200 mls/hr Documented by: [id number] Discontinued Medications Ceftriaxone Sodium (Rocephin) 2,000 mg in 70 mls @ 140 mls/hr IV NOW STA Stop: 02/10/21 11:53 Last Infusion: 02/10/21 13:49 Dose: 0 mls/hr Documented by: [id number] Admin: 02/10/21 13:08 Dose: 140 mls/hr Documented by: [id number] Ioversol (Ioversol 100ml) 95 ml IV ONCE ONE Stop: 02/10/21 12:56 Last Admin: 02/10/21 12:56 Dose: 95 ml Documented by: [id number] Ketorolac Tromethamine (Ketorolac Tromethamine 15 Mg/Ml Vial) 10 mg IV NOW ONE Stop: 02/10/21 11:28 Last Admin: 02/10/21 12:06 Dose: 10 mg Documented by: [id number] ECG Additional Comments: Vent. Rate : 059 BPM Atrial Rate : 059 BPM P-R Int : 164 ms QRS Dur : 078 ms QT Int : 416 ms P-R-T Axes : 027 -25 021 degrees QTc Int : 411 ms Sinus bradycardia Otherwise normal ECG When compared with ECG of 28-FEB-2014 12:38, No significant change was found Code Status & VTE Plan Code Status VTE: SCD's ambulation CODE: FULL Supervising Physician Co-Signing Physician Notes Attending Admit Note & Attestation - Pt seen & examined, chart reviewed, care plan d/w VALERIA Avila. I agree w/ the riley components of his documentation. Pleasant 55yo female presenting with several days of worsening scalp abscess and erythema of her face. Visited our ER on 02/08. Bedside I/D attempted at that time with essentially no purulence obtained. D/c home on keflex/doxy combination. Despite such the abscess worsened. She used warm compresses and it started to drain spontaneously in the last 24 hours. In addition she has developed b/l facial erythema and swelling along with central/midline forehead erythema. No fevers. PMH,PSH, allergies, meds, sochx, famhx - reviewed VSS, afebrile gen - NAD, nontoxic skin - 1.5 x 1.5cm abscess in scalp nearly at the junction of the forehead and scalp line; it is directly in midline; it is swollen, tender, and spontaneously draining purulent material. midline of forehead there is erythema. b/l cheeks extending to both eyes - erythema with swelling. Has the appearance of erysipilis. heart - RRR, s1 s2 lungs - CTA b/l abd - soft ext - no edema labs, imaging reviewed A/P: Scalp abscess Forehead cellulitis Facial/cheek cellulitis - erysipelas suspected Wound culture obtained by plastics Patient would like trial of IV antibiotics, warm compresses, and supportive care rather than attempts at I/D of abscess again - especially since the abscess is now spontaneously draining Cont IV rocephin/vanco If this is erysipelas with abscess classically it is caused by group A strep [place] MRSA swab ultimately returned negative today Jonah Boswell MD PG Care Time/CCT Total # of Minutes Spent Total Time Spent with Patient: Total time spent is greater than 50% in coordination of care (as documented) at patient's floor/unit and/or counseling patient: Coding Level of Care Code 31452 Initial Inpt Care Lvl 2 Diagnoses Abscess of scalp L02.811 Cellulitis of head or scalp L03.811 Kinsey esophagus K22.70 Kinsey's esophagus type: without dysplasia Vitamin D deficiency disease E55.9 (1) Kinsey esophagus Kinsey's esophagus type: without dysplasia Qualified Code(s): K22.70 - Kinsey's esophagus without dysplasia
--- NOTE | 2021-02-10 14:42 | Electrocardiogram Report ---
Test Reason : Blood Pressure : / mmHG Vent. Rate : 059 BPM Atrial Rate : 059 BPM P-R Int : 164 ms QRS Dur : 078 ms QT Int : 416 ms P-R-T Axes : 027 -25 021 degrees QTc Int : 411 ms Sinus bradycardia Otherwise normal ECG When compared with ECG of 28-FEB-2014 12:38, No significant change was found Confirmed by Felipe Irving ([id number]) on 02/10/2021 2:41:59 PM Referred By: Confirmed By:Felipe Irving
[2021-02-10] MEDS ORDERED: ONDANSETRON INJ 2 MG/ML 2 ML VIAL IV PRN (16:14)
[2021-02-10] MEDS ORDERED: FLUTICASONE PROPIONATE NA SPR 16 GM BTL PRN (16:30)
[2021-02-10] MEDS ORDERED: LORATADINE 10 MG TAB PO PRN (16:30)
--- NOTE | 2021-02-10 17:06 | Pharmacy Report ---
Pharmacy Abx Initial Consult - Date of Service February 10, 2021 - Pharmacy Dosing Scope Date of Consult: 02/10/21 Consultation requested by: Axel Mendez Pharmacy is consulted to initiate VANCOMYCIN IV dosing therapy, order appropriate labs and adjust drug dose/frequency. - Subjective The patient is a 55 year old F admitted on 02/10/21 14:27. - Objective Height: 5 ft 7 in Weight: 71.1 kg Vital Signs (Past 12hrs): Vital Signs Temp Pulse Pulse Resp BP BP Pulse Ox 02/10/21 16:15 36.5 C 61 20 114/64 98 02/10/21 15:10 57 L 19 02/10/21 15:01 54 L 14 113/51 L 02/10/21 15:00 53 L 13 02/10/21 14:50 57 L 15 02/10/21 14:40 52 L 17 98 02/10/21 14:38 53 L 17 110/70 99 02/10/21 14:30 55 L 14 98 02/10/21 14:20 58 L 15 100 02/10/21 14:10 56 L 16 100 02/10/21 14:00 63 19 99 02/10/21 13:50 56 L 13 99 02/10/21 13:40 59 L 15 97 02/10/21 13:30 54 L 21 02/10/21 13:20 63 17 02/10/21 13:10 58 L 16 99 02/10/21 13:08 58 L 18 128/72 98 02/10/21 13:07 59 L 16 128/72 99 02/10/21 13:04 24 02/10/21 12:40 59 L 20 02/10/21 12:30 59 L 14 99 02/10/21 12:20 59 L 18 100 02/10/21 12:10 58 L 17 100 02/10/21 12:00 55 L 17 100 02/10/21 11:52 60 17 99 02/10/21 11:46 59 L 20 98 02/10/21 10:56 37.2 C 70 16 141/76 H 99 Lab Results (24hrs): Laboratory Tests (24 Hours) 02/10/21 02/10/21 02/10/21 11:59 11:59 11:59 WBC 7.83 Neut # (Auto) 5.39 Creatinine Est Cr Clr Drug Dosing C-Reactive Protein 1.59 H Procalcitonin < 0.05 02/10/21 11:59 WBC Neut # (Auto) Creatinine 0.85 Est Cr Clr Drug Dosing 67.9 C-Reactive Protein Procalcitonin Micro Results: 02/10/21 14:30 Gram Stain - Pending Scalp Deep Wound Culture - Pending 02/10/21 12:34 Aerobic Blood Culture - Pending Blood Anaerobic Blood Culture - Pending 02/10/21 11:59 Aerobic Blood Culture - Pending Blood Anaerobic Blood Culture - Pending - Risk Factors for Resistance * - Assessment & Plan Assessment 55 year old F ordered VANCOMYCIN/ROCEPHIN for scalp abscess. Micro pending. Plan Vancomycin IV * Estimated PK Parameters: Vd 0.7 L/kg, Brett 0.060 hr-1, t1/2 ~12 hr * Loading dose: 1250mg (17.6 mg/kg) * Maintenance dose:1000mg IV (14 mg/kg) every 12 hours * Goal trough level for SST : 15 to 20 mcg/mL * Trough level ordered for 02/12/21 @ 1130. Pharmacy will continue to follow and will adjust dose/frequency as necessary. Thank you.
[2021-02-10] MEDS: traZODone HCL 50 MG TAB PO PRN (20:51)
[2021-02-10] MEDS: CALCIUM 600MG + VIT D 400 IU TAB PO SCH (20:51)
[2021-02-11] MEDS ORDERED: VANCOMYCIN HCL 1,000 MG in SODIUM CHLORIDE 0.9% 250 ML IV SCH
[2021-02-11] MEDS: ACETAMINOPHEN 325 MG TAB PO PRN ×3 (00:19→22:16)
[2021-02-11 06:19] LABS: Basophils # (auto) 0.02 K/uL (0-0.2); Basophils % (auto) 0.5 %; Eosinophils # (auto) 0.15 K/uL (0-0.5); Eosinophils % (auto) 3.5 %; Hematocrit (blood only) 32.9 % (37-47); Hemoglobin 11.1 g/dL (12.0-16.0); Lymphocytes # (auto) 1.65 K/uL (1.2-3.4); Lymphocytes % (auto) 38.8 %; Mean Corpuscular Hemoglobin 30.6 pg (25-34); Mean Corpuscular Hgb Conc 33.7 g/dL (32-36); Mean Corpuscular Volume 90.6 fL (80-100); Mean Platelet Volume 9.7 fL (7.4-10.4); Monocytes # (auto) 0.56 K/uL (0.11-0.59); Monocytes % (auto) 13.2 %; Neutrophils # (auto) 1.87 K/uL (1.4-6.5); Platelet Count 261 K/uL (130-400); RDW Coefficient of Variation 12.8 % (11.5-14.5); RDW Standard Deviation 42.9 fL (36.4-46.3); Red Blood Count 3.63 M/uL (4.2-5.4); White Blood Count 4.25 K/uL (4.8-10.8)
[2021-02-11 06:50] LABS: BUN Creatinine Ratio 18.6 (10-20); Calcium 8.4 mg/dl (8.5-10.1); Creatinine Clr Calc Pharmacy 97.4 ml/min; Est GFR (Non-African American) 100.1; Magnesium 2.3 mg/dl (1.8-2.4); Potassium 4.2 mmol/L (3.5-5.1)
[2021-02-11] MEDS: CALCIUM 600MG + VIT D 400 IU TAB PO SCH ×2 (08:51→19:03)
[2021-02-11] MEDS: PANTOprazole 40 MG TAB PO SCH (08:52)
--- NOTE | 2021-02-11 09:02 | Hospitalist Progress Note ---
Date of Service February 11, 2021 Assessment & Plan (1) Abscess of scalp: Plastic surgery consult, status post I&D - IV ABX- Vancomycin and Rocephin await sensitivities of staph aureus is seen on wound culture -Ice to reduce swelling Oxycodone for pain control (2) Cellulitis of head or scalp: Staph aureus sensitivities not completed appearing - Cool compresses for symptoms (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- patient states that symptoms are controlled (4) Vitamin D deficiency disease: No acute needs, continue home medication Admission and Anticipated Discharge Date Admission Date: February 10, 2021 Subjective Patient was seen in conjunction plastic surgery today. Preliminarily wound cultures are growing staph blood cultures are negative speciation and sensitivities are not yet recorded from the staff. Since she failed outpatient cephalexin and Bactrim we are waiting confirmation of bacteria prior to choosing oral agent Review of Systems Review of Systems: Mild distress and fatigue no headache, blurry or double vision no speech or swallowing issues no chest pain, pressure or palpitations no shortness of breath, cough or wheezes no abdominal pain, nausea or vomiting, diarrhea or constipation no dysuria, hematuria or frequency no focal joint pain or swelling no back pain, CVA tenderness or radicular pain Patient has bilateral black eyes she is got some receding erythema to her upper forehead centrally with a crusted eschar over a fluctuant area approximately 2 cm inside of her hairline central midline of her head no focal signs of weakness or numbness or altered sensation no complaints of anxiety or depression.. Physical Exam Physical Exam: The patient appeared well nourished and normally developed. Vital signs as documented. Head exam is she has some ecchymosis below both eyes likely from result of the infection of her forehead. There is a small fluctuant area on her scalp midline 2 cm with 3 cm inside of her hairline. This will be incised and drained by plastic surgery at the bedside Neck is without JVD, thyromegaly, or carotid bruits. Lungs are clear to auscultation, no focal loss of breath sounds Cardiac exam, Rhythm is regular.. No murmurs, rubs or gallops. Abdominal exam reveals normal bowel sounds, soft non tender, no masses Extremities are nonedematous and both pedal pulses are present Neurologic exam is alert and oriented, no focal loss of strength or sensation Skin is without bruises or rashes Psychologically is without concerns for anxiety or depression Results & Data Results & Data ([facility]) Vital Signs (Past 12 Hours) Vital Signs Temp Pulse Resp BP Pulse Ox 02/11/21 07:21 97.7 F 51 L 18 110/67 95 02/10/21 22:46 97.9 F 59 L 16 110/67 100 PG Care Time/CCT Total # of Minutes Spent Total Time Spent with Patient: Total time spent is greater than 50% in coordination of care (as documented) at patient's floor/unit and/or counseling patient: Coding Level of Care Code 00551 Subseq Hosp Care Lvl 2 Diagnoses Abscess of scalp L02.811 Cellulitis of head or scalp L03.811 Kinsey esophagus K22.70 Kinsey's esophagus type: without dysplasia Vitamin D deficiency disease E55.9 (1) Kinsey esophagus Kinsey's esophagus type: without dysplasia Qualified Code(s): K22.70 - Kinsey's esophagus without dysplasia
[2021-02-11] MEDS: VANCOMYCIN HCL 1,000 MG in SODIUM CHLORIDE 0.9% 250 ML IV SCH ×2 (09:36→19:03)
[2021-02-11] MEDS ORDERED: LIDO/EPINEPHRINE/SOD BICARB 20 ML VIAL INFIL ONE (11:45)
[2021-02-11] MEDS ORDERED: oxyCODONE HCL IR 5 MG TAB (IMMEDIATE RELEASE) PO PRN (12:42)
[2021-02-11] MEDS ORDERED: cefTRIAXone SODIUM 1,000 MG in DEXTROSE 5% 50 ML IV SCH (13:00)
--- NOTE | 2021-02-11 14:30 | Surgery Progress Note ---
Date of Service February 11, 2021 Assessment & Plan (1) Abscess of scalp: Discussed with the patient that is the area is now fluctuant and no longer draining, incision and drainage would likely be of benefit to resolve the infection more quickly. Patient agrees. Verbal consent was obtained for incision and drainage. Procedure note: Site was notified with patient. Skin was prepped with Betadine. 3 cc of buffered 1% lidocaine with epinephrine were used to anesthetize the area. 11 blade scalpel was used to make a 1 cm stab incision over top of the fluctuance. Hemostat was used to spread the tissues and obtain about 1 cc of purulent drainage. Wound was packed using iodoform gauze. There was scant bleeding. Procedure was tolerated well. No additional cultures were obtained as we do have a pending wound culture from yesterday. She remains on vancomycin per the hospitalist team. Packing should be removed in 48 hours if it has not fallen out on its own by then. Discussed she may follow-up with us upon discharge. Admission and Anticipated Discharge Date Admission Date: February 10, 2021 Subjective Patient seen and examined at bedside today with Dr. Lindsay present. Patient reports her scalp is still sore, feels some of the redness is improved. She feels the area on her scalp is crusted over, while she did have some purulent drainage overnight, this seems to have stopped. Physical Exam Physical Exam: 55 year old female with draining subcutaneous lesion frontal scalp, erythema, warmth and edema of the forehead and bilateral lower eyelid/malar area. 1 to 2 cm area of fluctuance anterior scalp, overlying crusting, no drainage. Results & Data ([facility]) Vital Signs (Past 12 Hours) Vital Signs Temp Pulse Resp BP Pulse Ox 02/11/21 07:21 97.7 F 51 L 18 110/67 95 Laboratory Results White blood cell count 4.25 Wound culture shows staph aureus, sensitivities to follow PG Care Time/CCT Total # of Minutes Spent Total Time Spent with Patient: Total time spent is greater than 50% in coordination of care (as documented) at patient's floor/unit and/or counseling patient: Coding Level of Care Code 44709 Subseq Hosp Care Lvl 2 (25 - SIGNIFICANT, SEPARATELY IDENTIFIABLE ) Diagnoses Abscess of scalp L02.811 CPT Codes Drainage of Skin Abscess - 79044 ([id number])
[2021-02-11] MEDS: traZODone HCL 50 MG TAB PO PRN (22:17)
[2021-02-12] MEDS ORDERED: VANCOMYCIN TROUGH ONE ×2 (05:30→11:30)
[2021-02-12 05:53] LABS: Hemoglobin 11.6 g/dL (12.0-16.0); Mean Corpuscular Hemoglobin 30.6 pg (25-34); Mean Corpuscular Hgb Conc 34.1 g/dL (32-36); Mean Corpuscular Volume 89.7 fL (80-100); Mean Platelet Volume 9.5 fL (7.4-10.4); Platelet Count 255 K/uL (130-400); RDW Coefficient of Variation 12.7 % (11.5-14.5); RDW Standard Deviation 41.9 fL (36.4-46.3); Red Blood Count 3.79 M/uL (4.2-5.4); White Blood Count 3.87 K/uL (4.8-10.8)
[2021-02-12] MEDS: VANCOMYCIN HCL 1,000 MG in SODIUM CHLORIDE 0.9% 250 ML IV SCH (06:12)
[2021-02-12 06:15] LABS: Basophils # (auto) 0.01 K/uL (0-0.2); Basophils % (auto) 0.3 %; Eosinophils # (auto) 0.17 K/uL (0-0.5); Eosinophils % (auto) 4.4 %; Lymphocytes % (auto) 51.7 %; Monocytes # (auto) 0.44 K/uL (0.11-0.59); Monocytes % (auto) 11.4 %; Neutrophils # (auto) 1.25 K/uL (1.4-6.5); Neutrophils % (auto) 32.2 %
[2021-02-12 06:29] LABS: BUN Creatinine Ratio 19.1 (10-20); Calcium 8.7 mg/dl (8.5-10.1); Creatinine Clr Calc Pharmacy 91.5 ml/min; Est GFR (African American) 113.7; Est GFR (Non-African American) 98.1; Magnesium 2.1 mg/dl (1.8-2.4); Potassium 4.1 mmol/L (3.5-5.1)
[2021-02-12] MEDS: CALCIUM 600MG + VIT D 400 IU TAB PO SCH (08:41)
[2021-02-12] MEDS: PANTOprazole 40 MG TAB PO SCH (08:41)
[2021-02-12] MEDS: ACETAMINOPHEN 325 MG TAB PO PRN (09:52)
--- NOTE | 2021-02-12 11:44 | Surgery Progress Note ---
Date of Service February 12, 2021 Assessment & Plan (1) Abscess or cellulitis of scalp: Admission and Anticipated Discharge Date Admission Date: Packing changed today. Patient should leave packing in place and follow-up with [facility] either tomorrow or Wednesday. Patient is aware to call and schedule. Subjective Patient is resting in bed, plan for d/c home today. Cultures revealed MSSA. Physical Exam Physical Exam: scalp abscess with packing in place. induration and fluctuance has resolved, no erythema or surrounding soft tissue. facial edema significantly improved. + drainage from wound. packing removed, cavity irrigated with sterile saline, and wound re-packed with 1/4 " iodoform gauze Results & Data ([facility]) Vital Signs (Past 12 Hours) Vital Signs Temp Pulse Resp BP Pulse Ox 02/12/21 07:24 36.6 C 49 L 16 139/66 98 PG Care Time/CCT Total # of Minutes Spent Total Time Spent with Patient: Total time spent is greater than 50% in coordination of care (as documented) at patient's floor/unit and/or counseling patient: Coding Level of Care Code 74141 Subseq Hosp Care Lvl 2 Diagnoses Abscess or cellulitis of scalp L03.811
[2021-02-12] MEDS ORDERED: VANCOMYCIN HCL 1,000 MG in SODIUM CHLORIDE 0.9% 250 ML IV SCH (14:00)
--- NOTE | 2021-02-12 16:09 | Discharge Summary ---
Date of Service February 12, 2021 Admission HPI Per Admitting Provider 55 YOF with past medical history of Vitamin D deficiency, audi esophagitis, IBS; who originally presented to the ED on for complaint of a painful scalp lesion with erythema that extended to the forehead. She had an attempted needle aspiration performed and was discharged on oral Keflex and Bactrim. She came in today for worsening of the erythema to her forehead and as well as down below her eyes. She also noted that her lymph nodes along her neck were sore. In the Emergency room she had blood cultures performed, urine culture, a head and face CT scan, and was started on Ceftriaxone and Vancomycin. The Hospitalist service was then asked to see the patient for admission. The patient does not recall any nidus of injury to her scalp. She "may have bumped her head on the recliner while getting the remote from under couch", but thought that was a couple of months ago. She did go to the hair dressers on and does not recall any injury or soreness following that appointment. She also noted that her grandchild threw up in her hair a couple of days ago, while she was holding her over her head. She has a ~1.5 x.5 cm abscess on her scalp about 1.5 inches back from her hairline, it is scabbed over with green yellow purulent drainage, the surrounding tissue was mildly tender, not erythematous, with erythema down her central forehead that stopped right above her eyebrows. Erythema to below her bilateral eyes and upper eyelids, does not track any further laterally and posterior. Patient had one day of her antibiotics at home and Tylenol for pain. Denies fevers, headache, vision or breathing changes. Principal Diagnosis facial cellulitis and abscess s/p drainage-> MSSA Discharge Exam face is less swollen, some ecchymosis below eyes, minor fluctuance to scalp, wic in place Discharge Data Allergies Allergy/AdvReac Type Severity Reaction Status Date / Time No Known Allergies Allergy Verified 02/10/21 12:41 Consultations 02/10/21 13:33 ED Decision to Admit Stat 02/10/21 16:14 Consult Plastic Surgery Routine Ordered Studies 02/10/21 11:24 CT facial bones w con Stat 02/10/21 11:25 CT head/brain wo con Stat Hospital Course (1) Abscess of scalp: Plastic surgery consult, status post I&D - MSSA will have home on doxycycline, did not want to go home on bactrim since she was on it at home -Ice to reduce swelling pt did not want home pain medicines will follow up with plastic surgery for eval and wound care (2) Cellulitis of head or scalp: Staph aureus sensitivities not completed appearing - Cool compresses for symptoms (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- patient states that symptoms are controlled (4) Vitamin D deficiency disease: No acute needs, continue home medication Total Time Total Time Spent Total Time Spent (In Minutes): greater than 30 minutes were required to prepare this summary Discharge Plan Discharge Items Patient Disposition: Home - Self-Care Reason For Visit: Scalp Abscess Discharge Diagnosis: scalp abscess with drainage required Activity: Resume your previous activity Non-emergency contact: Primary Care Provider and Specialist Call non-emergency contact if: you have any medication questions, your symptoms worsen and you have a fever Follow-up/Referrals: Good Villareal MD [Primary Care Provider] - 02/14/21 10:30 am Alesia Ashley PA-C [Physician [facility]] - Diet: Regular Addtl Attending Provider Instructions: follow wound care instructions from plastic surgery complete all of your antibiotics Pending Studies at Discharge: Yes Studies:: blood cultures will not be final for 5 days are negative at this time Stand-Alone Forms: My [facility], Work/School Release (Inpt), Smoking Cessation Medications and DC Order Prescriptions: New doxycycline hyclate 100 mg tablet 100 mg PO BID 14 Days Qty: 28 RF: 0 Continued fluticasone propionate [Flonase Allergy Relief] 50 mcg/actuation spray,suspension 1 spray INTRANASAL DAILY PRN (Reason: Nasal Congestion) Qty: 9.9 RF: 3 trazodone 50 mg tablet 25 - 50 mg PO HS Qty: 30 RF: 1 loratadine [Claritin] 10 mg Tablet 10 mg PO QAM PRN (Reason: Allergy Symptoms) RF: 0 Calcium 600 + D(3) 600 mg calcium- 200 unit Capsule 1 cap PO BID RF: 0 pantoprazole 40 mg tablet,delayed release (DR/EC) 40 mg PO QAM RF: 0 Discontinued sulfamethoxazole-trimethoprim [Bactrim DS] 800-160 mg tablet 1 tab PO BID 7 Days Qty: 14 RF: 0 cephalexin 500 mg tablet 500 mg PO QID 7 Days Qty: 28 RF: 0 Discharge Orders: Discharge Order (Routine); Ordered 02/12/21 Ordered By: Raul Lindsay Admission Data Admit Date/Time: 02/10/21 14:27 Attending Provider: Raul Lindsay Admit Provider: Jonah Boswell Primary Care Provider: Good Villareal V. 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
== END 2021-02-12 12:20 | disposition home or self-care (01) | DRG 581 ==
LOC: ED 10:53 → SUATTDRO 14:27 → 3W 14:27